=== PATIENT | female | born 1980 | race African-American/Black ===

== ENCOUNTER 2023-08-01 15:47 | Emergency (ER) | payer MEDICAID, OTHER ==
[~2023-08-01] VITALS: Ht 167.6 cm; Wt 70.0 kg
[2023-08-01 15:51] VITALS: O2SAT 98
[2023-08-01 19:01] VITALS: BP 166/96; PULSE 100; RESP 18; TEMP 98.2
== END 2023-08-01 19:04 | disposition home or self-care (01) ==
LOC: ER 15:47
DX: F41.9 Anxiety disorder, unspecified (principal)
CPT/HCPCS: 99283; Z7610